=== PATIENT | female | born 1975 | race Caucasian/White ===

== ENCOUNTER 2023-04-08 08:02 | Outpatient (CLI) | payer OTHER, SELFPAY ==
--- NOTE | 2023-04-08 08:15 | MM_ITS ---
WS: [id number] VIEWS: MLO and CC views both breasts. 3D digital tomosynthesis is also included in this exam. No priors.: There was no sign of mass, architectural distortion or suspicious calcification in either breast. The breasts are extremely dense which lowers the sensitivity of mammography. Impression: MM/[id number] BI-RADS: 2-Benign FOLLOW-UP: 1 Year Follow-up This mammogram was also analyzed by the Computer Aided Detection System [employer].
== END 2023-04-08 08:03 | disposition home or self-care (01) ==
LOC: RAD 08:06 → MOBLMAM 08:11
PROVIDERS: PCP Nurse Practitioner; Visit Provider Family Medicine
DX: Z12.31 Encounter for screening mammogram for malignant neoplasm of breast (principal)
CPT/HCPCS: 77063; 77067

== ENCOUNTER → 2023-05-07 09:47 | Outpatient (BNVA) | payer OTHER, SELFPAY | PROVIDERS: PCP Nurse Practitioner; Visit Provider Surgery | DX: K52.9 Noninfective gastroenteritis and colitis, unspecified (principal); R19.7 Diarrhea, unspecified; Z12.11 Encounter for screening for malignant neoplasm of colon; K21.9 Gastro-esophageal reflux disease without esophagitis; K58.9 Irritable bowel syndrome, unspecified | CPT/HCPCS: 36415; 80053; 84443; 85025; 86140 ==

== ENCOUNTER → 2023-06-11 10:08 | Outpatient (BNVA) | payer OTHER, SELFPAY | PROVIDERS: PCP Nurse Practitioner; Referring Provider Surgery; Visit Provider Surgery | DX: K52.9 Noninfective gastroenteritis and colitis, unspecified (principal); R19.7 Diarrhea, unspecified | CPT/HCPCS: 83630; 83993 ==

== ENCOUNTER 2023-06-17 05:52 | Day surgery (SDC) | payer OTHER, SELFPAY ==
[2023-06-17 06:01] VITALS: BMI 26.6
[2023-06-17 06:08] VITALS: BP 165/91; PULSE 92; RESP 18; TEMP 36.2; O2SAT 99
[2023-06-17] MEDS: sodium chloride 0.9% 1,000 ML 30 ML IV (06:16)
[2023-06-17] MEDS: ondansetron 2 mg/ML SDV 2 mL 4 MG IVP (06:17)
--- NOTE | 2023-06-17 06:45 | W.PM.OPSFHP ---
Same Day Surgery H&P Indication for Procedure/HPI DATE OF PROCEDURE: June 17, 2023 CHIEF COMPLAINT/INDICATIONFOR SURGICAL PROCEDURE: need foe screening colonoscopy PREOP DIAGNOSIS: need for screening colonoscopy PLANNED PROCEDURE: Operation Date: 06/17/23 07:00 Proposed Procedures p EGD(Not Applicable) - [place] s [id number] colon 99126 egd G0121 screen colon A risk Z12.11,K21.9,K58.9(Not Applicable) - Dimitry Villalobos MD Medications/Allergies* Home Medications Medication Instructions Recorded Confirmed Type desogestrel-e.estradiol 0.15 1 tab PO DAILY control 05/07/23 06/15/23 History mg-0.02 mg(21)/e.estrad 0.01 mg(5) tablet (Kariva (28)) lisinopril 40 mg tablet 40 mg PO DAILY 06/15/23 06/15/23 History Allergies/Adverse Reactions Allergy/AdvReac Type Severity Reaction Status Date / Time sumatriptan Allergy chest pain Verified 06/15/23 09:33 Current Medications: Generic Name Dose Route Start Last Admin Trade Name Freq PRN Reason Stop Dose Admin Sodium Chloride 1,000 mls @ 30 mls/hr 06/17/23 06:00 06/17/23 06:16 Sodium Chloride 0.9% IV 30 mls/hr .Q24H LISA Administration Ondansetron HCl 4 mg 06/17/23 05:54 06/17/23 06:17 Ondansetron 2 Mg/Ml Sdv 2 Ml IVP 4 mg ONCE PRN Administration NAUSEA AND VOMITING Pertinent History/Comorbid Conditions* Family History (Updated 05/07/23 @ 09:02 by DAGMAR Benoit) Diabetes Unknown cousin/ grandparents Heart disease Father Social History Smoking and tobacco/nicotine status: never used tobacco/nicotine Alcohol intake: never Pertinent Exam Findings alert, oriented x 3 and clear to auscultation bilaterally Recommendations Surgery/Procedure today Coding Level of Care Code Acute Code for Chg Fwd Diagnoses
--- NOTE | 2023-06-17 06:53 | ANES.PREANE2 ---
Pre-Anesthetic Assessment Height/Weight: Height 1.65 m Weight 72.575 kg Temp Pulse Resp BP Pulse Ox O2 Del Method 97.2 F L 92 18 165/91 99 Room Air 06/17/23 06:08 06/17/23 06:08 06/17/23 06:08 06/17/23 06:08 06/17/23 06:08 06/17/23 06:08 Preop Diagnosis: need for screening colonoscopy Operation Date: 06/17/23 07:00 Proposed Procedures p EGD(Not Applicable) - [place] Vill[place]obos [place] s [id number] colon 94157 egd G0121 screen colon A risk Z12.11,K21.9,K58.9(Not Applicable) - Dimitry Villalobos MD Familial anesthetic complications: none Was Beta Millicent taken within 24 hours: N/A Was Clonidine taken within 24 hours: N/A Last intake: Intake Last Liquid Date 06/16/23 Last Liquid Time 22:00 Last Solid Date 06/15/23 Last Solid Time 19:00 Social No alcohol and No tobacco Exam alert, oriented x 3, clear to auscultation bilaterally and regular rate & rhythm Airway Submandibular: within normal limits Cervical ROM: within normal limits Mallampati: Class I Dentition: full Pulmonary None reported CV/HEM Hypertension None reported Hepatic None reported GI Gastroesophageal Reflux Disease Metabolic None reported Musc/skel None reported Neuropsych Headache Anesthetic Plan ASA status: 2 Anesthesia: MAC Risk of > 500 ml blood loss (7ml/kg in children): No Medications/Allergies Home Medications Medication Instructions Recorded Confirmed Last Taken Type desogestrel-e.estradiol 0.15 1 tab PO DAILY control 05/07/23 06/15/23 06/15/23 History mg-0.02 mg(21)/e.estrad 0.01 mg(5) tablet (Kariva (28)) lisinopril 40 mg tablet 40 mg PO DAILY 06/15/23 06/15/23 06/15/23 History Allergies Allergy/AdvReac Type Severity Reaction Status Date / Time sumatriptan Allergy chest pain Verified 06/15/23 09:33 Current Medications Generic Name Dose Route Start Last Admin Trade Name Freq PRN Reason Stop Dose Admin Sodium Chloride 1,000 mls @ 30 mls/hr 06/17/23 06:00 06/17/23 06:16 Sodium Chloride 0.9% IV 30 mls/hr .Q24H LISA Administration Ondansetron HCl 4 mg 06/17/23 05:54 06/17/23 06:17 Ondansetron 2 Mg/Ml Sdv 2 Ml IVP 4 mg ONCE PRN Administration NAUSEA AND VOMITING PFSH Anesthesia Family History (Updated 05/07/23 @ 09:[address]) Father Heart disease Unknown Diabetes cousin/ grandparents Social History (Updated 05/07/23 @ 09:[address]) Smoking and tobacco/nicotine status: never used tobacco/nicotine Alcohol intake: never Data Anesthesia Cardiac Studies: No Data to Display
[2023-06-17 07:47] VITALS: BP 136/73; PULSE 74; RESP 12; TEMP 36.1; O2SAT 99
[2023-06-17 07:57] VITALS: BP 161/67; PULSE 74; RESP 14; O2SAT 100
[2023-06-17 08:31] VITALS: BP 165/75; PULSE 79; RESP 16; O2SAT 99
--- NOTE | 2023-06-17 11:58 | ANE.PACU2 ---
Inpatient post-anesthesia follow up: Airway intact: Yes Vital signs: Temperature 97 F Pulse Rate 79 Respiratory Rate 16 Blood Pressure 165/75 Pulse Oximetry 99 Oxygen Delivery Me thod Room Air Oxygen Flow Rate Fraction of Inspir ed Oxygen Hydration adequate: Yes Nausea and vomiting: No Pain level: 2 Mental status: Baseline
== END 2023-06-17 08:45 | disposition home or self-care (01) ==
PROVIDERS: PCP Family Medicine; Visit Provider Surgery
PROC: 0DJ08ZZ Inspection of Upper Intestinal Tract, Via Natural or Artificial Opening Endoscopic (ICD-10-PCS; CPT 43235; principal; 2023-06-17 07:00)
PROC: 0DJD8ZZ Inspection of Lower Intestinal Tract, Via Natural or Artificial Opening Endoscopic (ICD-10-PCS; CPT 45378; 2023-06-17 07:00)
DX: Z12.11 Encounter for screening for malignant neoplasm of colon (principal); K29.50 Unspecified chronic gastritis without bleeding; I10 Essential (primary) hypertension
CPT/HCPCS: 43239; 45378; 88305; 88342; J2405; J2704; J7030

== ENCOUNTER 2024-04-13 10:20 | Outpatient (CLI) | payer OTHER, SELFPAY ==
--- NOTE | 2024-04-13 10:20 | MM_ITS ---
WS: [id number] BILATERAL SCREENING DIGITAL TOMOSYNTHESIS MAMMOGRAM WITH CAD HISTORY: SCREENING COMPARISON: 04/08/2023 Bilateral CC and MLO views with tomosynthesis and synthetic mammography submitted. Computer aided det ection analyzed. Breast composition: The breasts are heterogeneously dense, which may obscure small masses. No suspici ous masses, microcalcifications or architectural distortion. There are a few scattered benign calcifi cations and vascular calcifications. MM/[place] [id number] IMPRESSION: BI-RADS: 2 - Benign FOLLOW UP: 1 Year Follow-up
== END 2024-04-13 10:21 | disposition home or self-care (01) ==
LOC: MOBLMAM 10:22
PROVIDERS: PCP Family Medicine; Visit Provider Family Medicine
DX: Z12.31 Encounter for screening mammogram for malignant neoplasm of breast (principal); R92.333 Mammographic heterogeneous density, bilateral breasts; R92.1 Mammographic calcification found on diagnostic imaging of breast
CPT/HCPCS: 77063; 77067